=== PATIENT | female | born 1995 | race Caucasian/White ===

== ENCOUNTER 2017-06-14 09:49 | Emergency (ER) | payer MEDICAID ==
[~2017-06-14] VITALS: Ht 160 cm; Wt 49.9 kg
[2017-06-14 09:50] VITALS: BP_SYST 113
[2017-06-14 11:04] VITALS: BP_SYST 132
== END 2017-06-14 11:04 | disposition home or self-care (01) ==
LOC: SED 09:49
DX: J06.9 Acute upper respiratory infection, unspecified (principal)
CPT/HCPCS: 99283

== ENCOUNTER 2017-10-30 21:59 | Emergency (ER) | payer MEDICAID ==
[~2017-10-30] VITALS: Ht 160 cm; Wt 54.4 kg
[2017-10-30 22:04] VITALS: BP_SYST 130
[2017-10-30] MEDS ORDERED: BACITRACIN 1 GM OINT TP ONE ×2 (22:19→22:30)
[2017-10-30] MEDS ORDERED: DIPH-TET-PERTUS Vaccine 0.5 ML VIAL (ADACEL) I.M. ONE (22:30)
[2017-10-30 22:34] VITALS: BP_SYST 134
== END 2017-10-30 22:34 | disposition home or self-care (01) ==
LOC: SED 21:59
DX: S51.011A Laceration without foreign body of right elbow, initial encounter (principal); W01.10XA Fall on same level from slipping, tripping and stumbling with subsequent striking against unspecified object, initial encounter; Y93.E1 Activity, personal bathing and showering; Y92.091 Bathroom in other non-institutional residence as the place of occurrence of the external cause; Y99.8 Other external cause status
CPT/HCPCS: 90715; 99283

== ENCOUNTER 2020-07-04 15:02 | Emergency (ER) | payer SELFPAY ==
[~2020-07-04] VITALS: Ht 167.6 cm; Wt 52.2 kg
[2020-07-04 15:22] VITALS: BP_SYST 130
--- NOTE | 2020-07-04 15:28 | NUR ---
MARNI BAKERY TECHNICIAN AT BEDSIDE
[2020-07-04 15:47] VITALS: BP_SYST 130
--- NOTE | 2020-07-04 15:47 | NUR ---
Patient given written and verbal discharge instructions and verbalizes understanding. ER MD discussed with patient the results and treatment provided. Patient in stable condition. ID arm band removed. Rx of NAPROXEN given. Patient educated on pain management and to follow up with PMD. Pain Scale 0/10 Opportunity for questions provided and answered. Medication side effect fact sheet provided.
== END 2020-07-04 15:45 | disposition home or self-care (01) ==
LOC: SED 15:02
DX: M79.602 Pain in left arm (principal); R03.0 Elevated blood-pressure reading, without diagnosis of hypertension
CPT/HCPCS: 99282